=== PATIENT | male | born 1980 | race Caucasian/White ===

== ENCOUNTER 2023-12-02 01:30 | Emergency (ER) | payer MEDICARE, MEDICAID ==
[~2023-12-02] VITALS: Ht 177.8 cm; Wt 77.1 kg
[2023-12-02 02:09] VITALS: BP 108/86; PULSE 83; RESP 18; TEMP 97.7; O2SAT 76
[2023-12-02] MEDS ORDERED: KETOROLAC 60 MG/2 ML VIAL IM ONE (02:40)
== END 2023-12-02 03:00 | disposition home or self-care (01) ==
LOC: MED 01:30
DX: M79.672 Pain in left foot (principal); M79.671 Pain in right foot; M25.572 Pain in left ankle and joints of left foot; M25.571 Pain in right ankle and joints of right foot; R03.0 Elevated blood-pressure reading, without diagnosis of hypertension; Z90.49 Acquired absence of other specified parts of digestive tract; Z98.890 Other specified postprocedural states
CPT/HCPCS: 99281